=== PATIENT | male | born 2000 | race Caucasian/White ===

== ENCOUNTER 2022-01-25 16:40 | Emergency (ER) | payer OTHER ==
[~2022-01-25] VITALS: Ht 195.6 cm; Wt 270.0 kg
[2022-01-25] MEDS ORDERED: FLEXERIL5 M1 PO (18:15)
[2022-01-25] MEDS ORDERED: IBUPROFEN600 MG PO (18:15)
[2022-01-25 18:22] VITALS: BP 141/97
== END 2022-01-25 18:27 | disposition home or self-care (01) | DRG 605 ==
LOC: ED 16:40
DX: S00.93XA Contusion of unspecified part of head, initial encounter (principal); S16.1XXA Strain of muscle, fascia and tendon at neck level, initial encounter; S39.012A Strain of muscle, fascia and tendon of lower back, initial encounter; V49.50XA Passenger injured in collision with unspecified motor vehicles in traffic accident, initial encounter

== ENCOUNTER 2022-11-04 04:00 | Emergency (ER) | payer OTHER ==
[~2022-11-04] VITALS: Ht 195.6 cm; Wt 129.5 kg
[~2022-11-04 04:00] MED LIST: FLEXERIL5 M1 PO; IBUPROFEN600 MG PO
[2022-11-04 05:08] LABS: HEMATOCRIT 42.5 % (39.0-50.0); HEMOGLOBIN 15.2 g/dl (14.0-18.0); IMMATURE GRANULOCYTES 0.5 % (0.0-5.0); MEAN CELL VOLUME 83.5 fL CALC (80.0-100.0); MEAN CORPUSCULAR HGB 29.9 pG CALC (26.0-32.0); MEAN CORPUSCULAR HGB CONC 35.8 g/dL CAL (32.0-36.0); NEUT# 4.63 thou/uL (1.82-7.42); RED BLOOD COUNT 5.09 mill/uL (4.70-6.10); RED CELL DISTRI WIDTH 11.8 % (11.5-15.5)
[2022-11-04 05:12] LABS: ALBUMIN 4.9 g/dL (3.2-5.0); ALKALINE PHOSPHATASE 92 u/l (38-126); AMYLASE 90 u/l (30-110); ANION GAP 18 (6-22 (CALC)); BILIRUBIN, TOTAL 0.3 mg/dL (0.0-1.4); BUN 17 mg/dL (9-20); BUN/CREATININE RATIO 14 (12-20 (CALC)); CARBON DIOXIDE 21 mmol/l (22-30); CHLORIDE 109 mmol/l (95-108); CREATININE 1.2 mg/dL (0.7-1.3); GFR FOR AFR.AMER. > 60 ML/MIN (>=60 (CALC)); GFR OTHER RACES > 60 ML/MIN (>=60 (CALC)); LIPASE 130 u/l (23-300); POTASSIUM 3.5 mmol/l (3.5-5.1); SGOT/AST 47 u/l (17-59); SODIUM 144 mmol/l (137-146); TOTAL PROTEIN 7.8 g/dL (6.3-8.2)
[2022-11-04 08:20] LABS: URINE BILIRUBIN - DIPSTICK NEGATIVE (NEGATIVE); URINE BLOOD DIPSTICK MODERATE (NEGATIVE); URINE COLOR YELLOW; URINE GLUCOSE - DIPSTICK NEGATIVE (NEGATIVE); URINE KETONE NEGATIVE (NEGATIVE); URINE LEUK ESTERASE NEGATIVE (NEGATIVE); URINE PROTEIN - DIPSTICK NEGATIVE (NEG-TRACE); URINE UROBILINOGEN - DIPSTICK 0.2 E.U./dL (0.2)
[2022-11-04 08:24] LABS: URINE NITRITE - DIPSTICK NEGATIVE (Negative)
[2022-11-04] MEDS ORDERED: ZOFRAN4 MG/TAB PO (10:35)
[2022-11-04 10:38] VITALS: BP 151/104
== END 2022-11-04 10:48 | disposition home or self-care (01) | DRG 392 ==
LOC: ED 04:47
PROVIDERS: Emergency Medicine
DX: R10.9 Unspecified abdominal pain (principal); F90.9 Attention-deficit hyperactivity disorder, unspecified type
CPT/HCPCS: Q9967